=== PATIENT | male | born 1990 | race African-American/Black ===

== ENCOUNTER 2016-08-03 22:56 | Emergency (ER) | payer OTHER ==
[~2016-08-03] VITALS: Ht 182.9 cm; Wt 95.3 kg
[2016-08-03] MEDS ORDERED: NKM (23:10)
[2016-08-03 23:15] VITALS: BP 130/83
[2016-08-03] MEDS ORDERED: CYCLOBENZAPRINE10 MG ORAL (23:21)
[2016-08-03] MEDS ORDERED: IBUPROFEN800 MG ORAL (23:21)
[2016-08-03] MEDS ORDERED: Cyclobenzaprine 10mg Tab ORAL ONE (23:30)
[2016-08-03 23:53] VITALS: BP 128/85
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
== END 2016-08-03 23:53 | disposition home or self-care (01) ==
LOC: EMR 23:20
DX: M54.2 Cervicalgia (principal); V43.62XA Car passenger injured in collision with other type car in traffic accident, initial encounter; Y92.89 Other specified places as the place of occurrence of the external cause
CPT/HCPCS: 99282